=== PATIENT | female | born 1970 | race Caucasian/White ===

== ENCOUNTER 2019-01-19 09:39 | Emergency (ER) | payer MEDICAID ==
[~2019-01-19] VITALS: Ht 157.5 cm; Wt 67.1 kg
[2019-01-19 10:26] VITALS: BP 134/74
== END 2019-01-19 10:26 | disposition home or self-care (01) ==
LOC: ED 09:39
DX: K64.5 Perianal venous thrombosis (principal); K64.8 Other hemorrhoids; Z90.49 Acquired absence of other specified parts of digestive tract

== ENCOUNTER 2019-09-19 19:01 | Emergency (ER) | payer MEDICAID ==
[~2019-09-19] VITALS: Ht 165.1 cm; Wt 68.5 kg
[2019-09-19 19:06] VITALS: Ht 165.1 cm; Wt 68.5 kg
[2019-09-19 19:31] VITALS: BP 120/76
== END 2019-09-19 19:35 | disposition home or self-care (01) ==
LOC: ED 19:01
DX: N39.0 Urinary tract infection, site not specified (principal); Z90.49 Acquired absence of other specified parts of digestive tract

== ENCOUNTER 2020-03-13 14:16 | Emergency (ER) | payer MEDICAID ==
[~2020-03-13] VITALS: Ht 157.5 cm; Wt 68.0 kg
[2020-03-13 14:26] VITALS: Ht 157.5 cm; Wt 68.0 kg
[2020-03-13 18:14] VITALS: BP 135/73
== END 2020-03-13 18:49 | disposition home or self-care (01) ==
LOC: ED 14:16
DX: J02.9 Acute pharyngitis, unspecified (principal); Z20.828 Contact with and (suspected) exposure to other viral communicable diseases; Z90.49 Acquired absence of other specified parts of digestive tract
CPT/HCPCS: U0003